=== PATIENT | female | born 1980 | race Caucasian/White ===

== ENCOUNTER 2021-11-15 13:00 | Emergency (ER) | payer BC ==
[~2021-11-15] VITALS: Ht 170.2 cm; Wt 76.2 kg
[2021-11-15] MEDS ORDERED: METOPROLOL SUCC50 MG (13:15)
[2021-11-15] MEDS ORDERED: ALPRAZOLAM0.5 MG (13:15)
[2021-11-15] MEDS ORDERED: DULOXETINE HCL60 MG (13:15)
[2021-11-15] MEDS ORDERED: CYCLOBENZAPRINE10 MG (13:15)
[2021-11-15] MEDS ORDERED: FOLIC ACID1 MG (13:15)
[2021-11-15] MEDS ORDERED: BUSPIRONE HCL30 MG (13:15)
[2021-11-15] MEDS ORDERED: ENBREL50 MG/1 M1 (13:16)
[2021-11-15] MEDS ORDERED: LOSARTAN-HCTZ1 EACH (13:16)
[2021-11-15] MEDS ORDERED: PREDNISONE10 M2 (13:16)
[2021-11-15] MEDS ORDERED: METHOTREXATE2.5 MG (13:16)
== END 2021-11-15 18:01 | disposition home or self-care (01) ==
LOC: ER 13:00
DX: R07.9 Chest pain, unspecified (principal); Z88.0 Allergy status to penicillin; Z88.8 Allergy status to other drugs, medicaments and biological substances